=== PATIENT | male | born 1975 | race Two or more races ===

== ENCOUNTER 2025-02-23 10:11 | Day surgery (SDC) | payer BC ==
[2025-02-22 10:53] VITALS: BMI 33.0
[2025-02-23] MEDS ORDERED: Lidocaine 2% 6 ML (Jelly) SYR ONE (11:16)
[2025-02-23] MEDS ORDERED: Bupivacaine/Epinephrine 0.25% 30 ML VIAL ONE (11:16)
[2025-02-23] MEDS ORDERED: CEFAZOLIN 2 GM VIAL ONE (11:17)
[2025-02-23] MEDS ORDERED: PROPOFOL 0 ML ONE (11:38)
[2025-02-23] MEDS ORDERED: Lidocaine 1% PF 5 ML VIAL ONE ×2 (11:39→12:28)
[2025-02-23] MEDS ORDERED: Famotidine/PF 20 mg/2ml Vial ONE (12:12)
[2025-02-23] MEDS ORDERED: PROPOFOL 20 ML ONE ×2 (12:27→12:32)
[2025-02-23] MEDS ORDERED: Ondansetron PF 4 MG/2 ML Vial ONE (12:56)
[2025-02-23] MEDS ORDERED: Ketorolac Tromethamine 30 MG (1 mL) VIAL ONE (12:57)
== END 2025-02-23 14:01 | disposition home or self-care (01) ==
LOC: CSHSDC 10:11
PROVIDERS: ATTEND Surgery
PROC: 06BY0ZC Excision of Hemorrhoidal Plexus, Open Approach (ICD-10-PCS; principal; 2025-02-23)
DX: K64.8 Other hemorrhoids (principal); K64.4 Residual hemorrhoidal skin tags; I10 Essential (primary) hypertension; E78.5 Hyperlipidemia, unspecified; J44.9 Chronic obstructive pulmonary disease, unspecified
CPT/HCPCS: 88304; 93005; 93010; J1100; J1308; J1885; J2405; J2704; J3010